=== PATIENT | female | born 1965 | race African-American/Black ===

== ENCOUNTER → 2016-12-15 | Outpatient (CLI) | payer MEDICARE ==
--- NOTE | ~2016-12-15 | MR17 ---
[facility] A Service of [facility] & [facility] RADIOLOGY TEXT RESULTS PATIENT: SILVINA APARICIO LOCATION: [facility] : 69 UNIT #: [id number] AGE: [address]: Matthew Sage II, MD SEX: F ORDER DR: [id number] [facility] [address] [place], [place] [address] [id number] O MR#: [id number] Acc #: [id number] NAME: SILVINA APARICIO : 1965 SEX: F STUDY DATE/TIME: 12/15/2016 13:41 UNIT: [facility] ROOM: STUDY DESCRIPTION: MR Brain WWo Contrast Attending Physician: Matthew Sage II., M.D. Referring Physician: Matthew Sage II., M.D. Ordering Physician: Matthew Sage II., M.D. Primary Care Physician: Helen Heredia [facility] REPORT This report is preliminary unless electronic signature is present. EXAM MRI brain with and without contrast dated 12/15/2016 COMPARISON None. HISTORY Patient hit head on a metal pole approximately a year ago in the right side of the head. Patient has short term memory loss ever since. FINDINGS Multisequence multiplanar imaging of the brain was obtained with and without contrast. 20 mL of MultiHance was administered intravenously. No acute stroke, space-occupying intracranial mass, mass effect, midline shift or hydrocephalus. S-shaped nasal septal deviation is noted with asymmetrically smaller right maxillary antrum when compared to the left. There is minimal paranasal sinus mucosal thickening noted. Imaged orbits with the ocular structures and mastoids do not demonstrate any significant abnormality. Postcontrast sequences do not demonstrate any significant abnormality. IMPRESSION 1. No demonstrable intracranial abnormality. 2. 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 Dictated by... Iva Reddy M.D. THIS IS AN ELECTRONICALLY VERIFIED REPORT Iva Reddy M.D. at 12/17/2016 5:29 PM CPR/mjs [facility] A Service of [facility] & [facility] RADIOLOGY TEXT RESULTS PATIENT: SILVINA APARICIO [facility] [birth year] UNIT #: [id number] AGE: [address]: Matthew Sage II, MD SEX: F ORDER DR: TD: 12/16/2016 14:15 JOB #: [id number] [facility] REPORT Page 1 of 1 COPY
== END | disposition home or self-care (01) ==
LOC: CMRI 12-10 13:00
DX: R41.3 Other amnesia (principal); M47.892 Other spondylosis, cervical region
CPT/HCPCS: 70553; A9577